=== PATIENT | female | born 1990 | race Caucasian/White ===

== ENCOUNTER → 2016-10-27 | Outpatient (REF) | payer OTHER | LOC: M SFHCCAPE 13:23 | PROVIDERS: ATTEND Physician Assistant | DX: Z32.00 Encounter for pregnancy test, result unknown (principal) ==

== ENCOUNTER → 2016-11-03 | Outpatient (REF) | payer OTHER | LOC: M LAB REF 16:23 | PROVIDERS: ATTEND Obstetrics & Gynecology | DX: O36.80X0 Pregnancy with inconclusive fetal viability, not applicable or unspecified (principal) ==

== ENCOUNTER 2016-11-24 15:21 | Emergency (ER) | payer OTHER ==
[2016-11-24 15:43] LABS: BASO % 0.2 % (0.0-1.0); EOS # 0.2 K/mm3 (0.0-0.50); EOS % 2.3 % (0.0-3.0); LARGE UNSTAINED CELL # 0.1 K/mm3 (0.0-0.4); LARGE UNSTAINED CELL % 1.7 % (0.0-4.0); LYMPH # 2.1 K/mm3 (1.5-6.5); LYMPH % 28.2 % (24.0-44.0); MEAN CORPUSCULAR HEMOGLOBIN 29.6 pg (27.0-33.0); MEAN CORPUSCULAR HGB CONC 31.7 g/dl (32.0-36.5); MEAN CORPUSCULAR VOLUME 93.2 fl (80.0-96.0); MONO # 0.3 K/mm3 (0.0-0.8); MONO % 4.5 % (0.0-5.0); NEUTROPHILS # 4.4 K/mm3 (1.8-7.7); NEUTROPHILS % 63.1 % (36.0-66.0); PLATELET COUNT, AUTOMATED 297 k/mm3 (150-450); RED CELL DISTRIBUTION WIDTH 13.2 % (11.5-14.5)
[2016-11-24 16:26] LABS: ANION GAP 8 MEQ/L (8-16); BLOOD UREA NITROGEN 11 MG/DL (7-18); CALCIUM LEVEL 7.7 MG/DL (8.5-10.1); CARBON DIOXIDE LEVEL 26 MEQ/L (21-32); CHLORIDE LEVEL 109 MEQ/L (98-107); CREATININE FOR GFR 0.69 MG/DL (0.55-1.02); GLOMERULAR FILTRATION RATE > 60.0 (>60); GLUCOSE, FASTING 94 MG/DL (70-105); HCG, SERUM QUANTITATIVE 2581 MIU/ML; SODIUM LEVEL 143 MEQ/L (136-145)
--- NOTE | 2016-11-24 17:46 | REP ---
Clinical: Pelvic pain status post medical . Technique: Transabdominal and transvaginal ultrasound examination with color Doppler evaluation of the ovaries. Findings: Heterogeneous anteverted uterus measures 9.5 x 4.1 x 5.6 cm. Endometrial complex is distended by complex hemorrhagic debris/clot measuring 5.9 x 1.7 x 2.6 cm. No intrauterine is identified and retained products of conception cannot be excluded. Incidental note is made of an anterior intramural fibroid measuring 2.1 cm maximal diameter. The bilateral ovaries are normal in appearance and vascularity without torsion. Right ovary measures 3.8 x 2.5 x 2.1 cm; RI equal 0.49. Left ovary measures 2.1 x 2.5 x 1.5 cm; RI equal 0.50. No pelvic free fluid or adnexal mass lesion. Impression: Clot/hemorrhagic debris in the endocervical canal. No intrauterine identified. Retained products of conception cannot be excluded. Signed by Pillo Díaz MD 11/24/2016 05:38 P
--- NOTE | 2016-11-24 19:11 | EDDOCDS ---
Nurse's Notes [facility] Name: Sindhu Layton Age: 26 yrs Sex: Female : 1990 Arrival Date: 11/24/2016 Time: 15:21 Bed 3 Private MD: Kathryn Dukes M. Diagnosis: Retained portions of placenta and membranes, without hemorrhage-removed with ring forceps, without complication Presentation: 11/24 15:27 Presenting complaint: EMS states: Patient had 11/11 and had been having some ja5 vaginal bleeding [facility] arrival patient had AMS but conscious. BP 80/40 per EMS at 1505. After 250L bolus her SBP went up to 90. Adult Sepsis Screening: The patient does not have new or worsening altered mentation. Patient's respiratory rate is less than 22. Systolic blood pressure is greater than 100. Patient has a qSOFA score of 0- Negative Sepsis Screen. Suicide/Homicide risk assessment- the patient denies having any suicidal and/or homicidal ideations and does not present with any other emotional, behavioral or mental health complaints. Status: Patient is not a service counselor or dependent. Transition of care: [facility] 15:27 Acuity: SINAN Level 2 ja5 15:27 Method Of Arrival: Ambulance ja5 15:52 Care prior to arrival: See EMS report. IV initiated. 1 liter normal saline infused. jc4 Triage Assessment: 15:34 General: Appears in no apparent distress, Behavior is cooperative, drowsy. Pain: Denies ja5 pain. Pt Declines HIV testing. Neurological: Level of Consciousness is awake, alert, Oriented to person, place, time. Cardiovascular: Capillary refill is > 3 seconds Heart tones S1 S2 present Rhythm is sinus rhythm No ectopy. Respiratory: Airway is patent Respiratory effort is even, unlabored, Breath sounds are clear bilaterally. Derm: Skin is pale. 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 Paxil 10 mg Oral tab 1 tab once daily (Last dose: 11/23/2016 09:00) - PMHx: Depression; Anxiety; - PSHx: ; - The history from nurses notes was reviewed: and I agree with what is documented. - Social history: Smoking status: Patient states former smoker of tobacco. No barriers to communication noted, The patient speaks fluent Belarusian. - Family history: Not pertinent. - : The pt / caregiver states he / she is not on anticoagulants. Home medication list is obtained from the patient. - Hospitalizations: : No recent hospitalization is reported. - Exposure Risk Screening:: None identified. - Immunization history:: All immunizations up-to-date. - Social history:: the patient is a non-smoker, the patient drinks alcohol. Screenin:39 Screening information is obtained from the patient. Fall risk: No risks identified. ja5 Assistance ADL's: requires no assistance with activities of daily living. Abuse/DV Screen: The patient / caregiver reports he/she is: not in a situation that causes fear, pain or injury. Nutritional screening: On no prescribed diet. Advance Directives: Currently, there is no health care proxy. There is no active DNR order. There is no living will. There is no Power of Job Interviewer. home support is adequate. Assessment: 16:15 General: Pt resting on stretcher. No distress noted at this time. Color pink, skin warm jc4 and dry. Respirations easy and full. IVF infusing well, site clear. monitoring manager - sinus rhythm without ectopy. Grandmother at bedside. Pt aware that labs are pending at this time. 16:36 General: Patient laying in stretcher with family at bedside. ST on surveillance system monitor, 99% ja5 O2 sat on RA with even unlabored respirations. Patient denies dizziness at this time.. 17:25 General: Pt returned from Ultrasound. Pt texting on phone. Color pink, skin warm and jc4 dry. Respirations easy and full. monitoring manager - sinus rhythm without ectopy. IVF infusing well. Call ramirez in reach. Pt made aware awaiting Ultrasound results. 18:29 General: Patient laying in stretcher, awake and alert with family at bedside. ja5 Respirations are even and unlabored, sinus rhythm, no ectopy on surveillance system monitor Patient is crying at this time due to the recent events in her life. . 19:05 General: Appears in no apparent distress, Behavior is cooperative. Pain: Denies pain. ja5 Neurological: Level of Consciousness is awake, alert, Oriented to person, place, time. Cardiovascular: Capillary refill Rhythm is sinus rhythm No ectopy. Derm: Skin is pink, warm & dry. Vital Signs: 15:37 BP 115 / 54; Pulse 68; Resp 16 S; Temp 96.7(O); Pulse Ox 100% on R/A; Pain 0/10; ja5 15:37 BP 110 / 56 (auto/); jc4 15:37 Pulse 73 MON; Pulse Ox 97% ; jc4 15:39 Weight 52.16 kg (R); Height 5 ft. 7 in. (170.18 cm); ja5 15:45 BP 108 / 59 (auto/); jc4 15:45 Pulse 78 MON; Pulse Ox 97% ; jc4 16:00 BP 110 / 63 (auto/); jc4 16:00 Pulse 80 MON; Pulse Ox 99% ; jc4 16:14 Pulse 77 MON; Pulse Ox 97% ; jc4 16:15 BP 117 / 69 (auto/); jc4 16:30 BP 115 / 68 (auto/); jc4 16:30 Pulse 100 MON; Pulse Ox 98% ; jc4 16:45 BP 92 / 55 (auto/); jc4 16:45 Pulse 88 MON; Pulse Ox 98% ; jc4 16:59 Pulse 83 MON; Pulse Ox 99% ; jc4 17:00 BP 120 / 56 (auto/); jc4 18:36 BP 101 / 65 Supine; Pulse 94; ja5 18:36 BP 117 / 80 Sitting; Pulse 89; ja5 18:36 BP 116 / 78 Standing; Pulse 88; ja5 19:05 BP 103 / 72; Pulse 90; Resp 20; Temp 98.0; Pulse Ox 98% ; Pain 0/10; ja5 15:39 Body Mass Index 18.01 (52.16 kg, 170.18 cm) 5 Vitals: 15:37 Log In Time: November 24, 2016 at 15:25. [facility] ED Course: 15:23 Patient visited by Veronique Washington, Regional Medical Director. lbd 15:23 Kathryn Dukes is Private Physician. lbd 15:23 Tasneem Arora, RN is Primary Nurse. lbd 15:23 Thuy Blancas,RN is Primary Nurse. lbd 15:23 Patient moved to Waiting lbd 15:23 Patient moved to 3 lbd 15:29 Mario Ramachandran MD is Attending Physician. pc 15:31 Triage Initiated ja5 15:34 Hcg, Serum Quantitative Sent. jc4 15:34 Type & Screen Sent. jc4 15:34 MED Profile Sent. jc4 15:34 CBC with Diff Sent. jc4 15:34 Maintain field IV. Dressing intact. Site clean & dry. Gauge & site: 18 G right jc4 antecubital. 15:52 Patient visited by Mario Ramachandran MD. pc 16:17 Patient visited by Tasneem Arora RN. jc4 16:17 The patient / caregiver is instructed regarding the plan of care and ED course. jc4 16:59 Patient moved to Ultrasound br3 17:23 Patient visited by Tasneem Arora, LILIBETH. jc4 17:23 Patient moved to 3 jc4 17:27 Patient visited by Tasneem Arora RN. jc4 17:40 Patient name changed from Sindhu\S\\S\Calin\S\ to Sindhu\S\ \S\Calin. EDMS 17:40 [facility] Payment Agreement was scanned into [employer] and attached to record. ks16 18:00 Assist provider with pelvic exam: Set up pelvic tray. POC sent to pathology, Performed kcs by Mario Ramachandran MD Patient tolerated well. 18:29 Patient visited by Thuy Blancas RN. ja5 18:30 Ultrasound 1st Trimester Returned. EDMS 18:32 Pathology Request For Service Sent. pc 18:44 Zane Uribe MD is Referral Physician. pc 19:02 Primary Nurse role handed off by Tasneem Arora RN [facility] 19:02 Primary Nurse role handed off by Thuy Blancas,LILIBETH [facility] 19:04 Ameena Bird,LILIBETH is Primary Nurse. mv5 19:07 Discontinued lock intact, bleeding controlled, pressure dressing applied, No ja5 redness/swelling at site. Administered Medications: 15:53 Drug: NS 0.9% 1000 ml [sodium chloride 0.9 % intravenous solution] Route: IV; Rate: 100 jc4 mL/hr; Site: right antecubital; 19:09 Follow up: IV Status: Infusion discontinued; IV Intake: 300ml ja5 Intake: 19:09 IV: 300.00ml; Total: 300.00ml. ja5 Order Results: Lab Order: CBC with Diff; SPEC'M 11/24/16 15:32 Test: WHITE BLOOD COUNT; Value: 7.0; Range: 4.0-10.0; Units: K/mm3; Status: F Test: RED BLOOD COUNT; Value: 3.16; Range: 4.00-5.40; Abnormal: Below low normal; Units: M/mm3; Status: F Test: HEMOGLOBIN; Value: 9.3; Range: 12.0-16.0; Abnormal: Below low normal; Units: g/dl; Status: F Test: HEMATOCRIT; Value: 29.4; Range: 36.0-47.0; Abnormal: Below low normal; Units: %; Status: F Test: MEAN CORPUSCULAR VOLUME; Value: 93.2; Range: 80.0-96.0; Units: fl; Status: F Test: MEAN CORPUSCULAR HEMOGLOBIN; Value: 29.6; Range: 27.0-33.0; Units: pg; Status: F Test: MEAN CORPUSCULAR HGB CONC; Value: 31.7; Range: 32.0-36.5; Abnormal: Below low normal; Units: g/dl; Status: F Test: RED CELL DISTRIBUTION WIDTH; Value: 13.2; Range: 11.5-14.5; Units: %; Status: F Test: PLATELET COUNT, AUTOMATED; Value: 297; Range: 150-450; Units: k/mm3; Status: F Test: NEUTROPHILS %; Value: 63.1; Range: 36.0-66.0; Units: %; Status: F Test: LYMPH %; Value: 28.2; Range: 24.0-44.0; Units: %; Status: F Test: MONO %; Value: 4.5; Range: 0.0-5.0; Units: %; Status: F Test: EOS %; Value: 2.3; Range: 0.0-3.0; Units: %; Status: F Test: BASO %; Value: 0.2; Range: 0.0-1.0; Units: %; Status: F Test: LARGE UNSTAINED CELL %; Value: 1.7; Range: 0.0-4.0; Units: %; Status: F Test: NEUTROPHILS #; Value: 4.4; Range: 1.8-7.7; Units: K/mm3; Status: F Test: LYMPH #; Value: 2.1; Range: 1.5-6.5; Units: K/mm3; Status: F Test: MONO #; Value: 0.3; Range: 0.0-0.8; Units: K/mm3; Status: F Test: EOS #; Value: 0.2; Range: 0.0-0.50; Units: K/mm3; Status: F Test: BASO #; Value: 0.0; Range: 0.0-0.2; Units: K/mm3; Status: F Test: LARGE UNSTAINED CELL #; Value: 0.1; Range: 0.0-0.4; Units: K/mm3; Status: F Lab Order: MED Profile; SPEC'M 11/24/16 15:32 Test: GLUCOSE, FASTING; Value: 94; Range: 70-105; Units: MG/DL; Status: F Test: BLOOD UREA NITROGEN; Value: 11; Range: 7-18; Units: MG/DL; Status: F Test: CREATININE FOR GFR; Value: 0.69; Range: 0.55-1.02; Units: MG/DL; Status: F Test: GLOMERULAR FILTRATION RATE; Value: > 60.0; Range: >60; Status: F Test: SODIUM LEVEL; Value: 143; Range: 136-145; Units: MEQ/L; Status: F Test: POTASSIUM SERUM; Value: 4.0; Range: 3.5-5.1; Units: MEQ/L; Status: F Test: CHLORIDE LEVEL; Value: 109; Range: 98-107; Abnormal: Above high normal; Units: MEQ/L; Status: F Test: CARBON DIOXIDE LEVEL; Value: 26; Range: 21-32; Units: MEQ/L; Status: F Test: ANION GAP; Value: 8; Range: 8-16; Units: MEQ/L; Status: F Test: CALCIUM LEVEL; Value: 7.7; Range: 8.5-10.1; Abnormal: Below low normal; Units: MG/DL; Status: F Test Note: ; Units are mL/min/1.73 m2 Chronic Kidney Disease Staging per NKF: Stage I & II GFR >=60 Normal to Mildly Decreased Stage III GFR 30-59 Moderately Decreased Stage IV GFR 15-29 Severely Decreased Stage V GFR <15 Very Little GFR Left ESRD GFR <15 on EMERGENCY MEDICINE Lab Order: Type & Screen; SPEC'M 11/24/16 15:32 Test: BLOOD TYPE; Value: B POS; Status: F Test: AB SCREEN (INDIRECT JORGE ALBERTO)VIS; Value: NEGATIVE; Status: F Lab Order: Hcg, Serum Quantitative; SPEC'M 11/24/16 15:32 Test: HCG, SERUM QUANTITATIVE; Value: 2581; Units: MIU/ML; Status: F Test Note: ; GESTATIONAL AGE APPROXIMATE HCG RANGE (MIU/ML) 0.2-1 WEEK 5-50 1-2 WEEKS 50-500 2-3 WEEKS 100-5,000 3-4 WEEKS 500-10,000 4-5 WEEKS 1,000-50,000 5-6 WEEKS 10,000-100,000 6-8 WEEKS 15,000-200,000 2-3 MONTHS 10,000-100,000 NON FEMALES LESS THAN 3.0 Patient samples may contain human heterophilic antibodies that could react with immunoassays to give falsely elevated or depressed results. This assay has been designed to minimize interference from heterophilic antibodies. Elevated hCG levels have also been associated with trophoblastic disease and nontrophoblastic neoplasms. The possibility of having these diseases should be considered before a diagnosis of is made. This test is not intended for use as a surrogate marker for aiding in the diagnosis or monitoring the treatment of cancer patients. Siemens Creole methodology. Radiology Order: Ultrasound 1st Trimester Test: Ultrasound 1st Trimester REASON FOR EXAMINATION: s/p chemical AB; Clinical: Pelvic pain status post medical .; ; Technique: Transabdominal and transvaginal ultrasound examination with color; Doppler evaluation of the ovaries.; ; Findings:; Heterogeneous anteverted uterus measures 9.5 x 4.1 x 5.6 cm. Endometrial complex; is distended by complex hemorrhagic debris/clot measuring 5.9 x 1.7 x 2.6 cm. No; intrauterine is identified and retained products of conception cannot; be excluded. Incidental note is made of an anterior intramural fibroid measuring; 2.1 cm maximal diameter. The bilateral ovaries are normal in appearance and; vascularity without torsion. Right ovary measures 3.8 x 2.5 x 2.1 cm; RI equal; 0.49. Left ovary measures 2.1 x 2.5 x 1.5 cm; RI equal 0.50. No pelvic free; fluid or adnexal mass lesion.; ; Impression:; Clot/hemorrhagic debris in the endocervical canal.; No intrauterine identified.; Retained products of conception cannot be excluded.; ; ; Signed by; Pillo Díaz MD 11/24/2016 05:38 P; Outcome: 18:45 Discharge ordered by Provider. 19:06 Discharge Assessment: Patient awake and alert. awake, Oriented to person, place and 5 time. patient administered narcotics - no. The following High Risk Discharge criteria are identified: None. Condition: stable. Discharge instructions given to patient, Instructed on discharge instructions, follow up and referral plans. medication usage, Patient was encouraged to no drive home tonight. Property :Personal belongings accompany Pt. 19:08 Ultrasound Study completed. ja5 19:09 Discharged to home ambulatory, with family. 5 19:10 Patient left the ED. [facility] Signatures: Dispatcher [employer] EDMS Mario Ramachandran MD MD pc Sleeman, Kacey, RN RN kcs Veronique Washington, Regional Medical Director Unit lbd Lynette Aleman br3 Tasneem Arora RN RN vanessa4 Kavitha Simeon, Reg Reg ks16 Thuy Blancas,RN RN daily5 Ameena Bird,RN RN mv5 Corrections: (The following items were deleted from the chart) 19:08 19:06 No special radiology studies were completed [place] [id number] MTDD
--- NOTE | 2016-11-24 19:11 | EDDOCDS ---
Physician Documentation [facility] Name: Sindhu Layton Age: 26 yrs Sex: Female : 1990 Arrival Date: 11/24/2016 Time: 15:21 Bed 3 Private MD: Kathryn Dukes M. Disposition: 11/24 18:37 Critical Care: Critical care not applicable. pc Disposition: 11/24/16 18:45 Discharged to Home/Self Care. Impression: Retained portions of placenta and membranes, without hemorrhage - removed with ring forceps, without complication. - Condition is Stable. - Discharge Instructions: Prostaglandin-Induced , Care After. - Prescriptions for Wylie 5- 325 mg Oral Tablet - take 1 tablet by ORAL route every 6 hours As needed MDD: 4 tabs; 20 tablet. methylergonovine 0.2 mg Oral Tablet - take 1 tablet by ORAL route 4 times per day; 4 tablet. - Medication Reconciliation, Local Pharmacy Hours form. - Follow up: Zane Uribe MD; When: Call to arrange an appointment; Reason: Continuance of care. - Problem is new. - Symptoms have improved. HPI: 16:59 This 26 yrs old Female presents to ER via Ambulance with complaints of Blood pc Pressure Problem. 16:59 The history is obtained from the patient. She had a chemical 2 weeks ago , at pc 7w3d by US, and has been bleeding heavily ever since. She has been feeling dizzy when she stands. [facility] to [facility], who performed the AB, and was attempting to do a pelvic exam when she felt weak and her BP was only 60 mmHg. She was sent by EMS, having received 600mL of NS BAR USEFUL OR BUSSER and her SBP was 105. She says her bleeding has slowed down and is no longer having abdominal cramps. At their worst, the symptoms were severe. In the emergency department, the symptoms are mild. The patient has been recently seen by Dr. Mcginnis, 3 week(s) ago, when she was unsure if she was going to terminate the or not.. Historical: - Allergies: no known allergies; - Home Meds: 1. Paxil 10 mg Oral tab 1 tab once daily (Last dose: 11/23/2016 09:00) - PMHx: Depression; Anxiety; - PSHx: ; - The history from nurses notes was reviewed: and I agree with what is documented. - Social history: Smoking status: Patient states former smoker of tobacco. No barriers to communication noted, The patient speaks fluent Azerbaijani. - Family history: Not pertinent. - : The pt / caregiver states he / she is not on anticoagulants. Home medication list is obtained from the patient. - Hospitalizations: : No recent hospitalization is reported. - Exposure Risk Screening:: None identified. - Immunization history:: All immunizations up-to-date. - Social history:: the patient is a non-smoker, the patient drinks alcohol. 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 pc Exam: 16:59 General Appearance: no acute distress, alert. pc 16:59 EENT: ears, nose and throat normal, pharynx normal, mucous membranes moist pale conjunctiva. 16:59 Neck: The exam reveals no acute abnormalities. ROM is normal and painless. No nuchal rigidity is noted.. 16:59 Respiratory: no respiratory distress, normal breath sounds, chest non-tender. 16:59 CVS: regular pulse rate, regular rhythm, normal S1 and S2, no murmurs, strong peripheral pulses. 16:59 Abdomen: soft, non-tender, no organomegaly, normal bowel sounds. 16:59 Back: normal inspection. 16:59 Skin: skin color is normal, warm, dry. 16:59 Extremities: The extremities have a grossly normal appearance, are non-tender, without acute ROM abnormalities. 16:59 Neuro: oriented x 3, cranial nerves normal as tested, no motor deficits, no sensory deficits. 16:59 Psych: normal mood. 18:37 : Pelvic Exam: external exam: is normal, speculum exam reveals scant bleeding, os pc that is open, tissue in cervix is seen, female parking ramp attendant present for the exam. Vital Signs: 15:37 BP 115 / 54; Pulse 68; Resp 16 S; Temp 96.7(O); Pulse Ox 100% on R/A; Pain 0/10; ja5 15:37 BP 110 / 56 (auto/); jc4 15:37 Pulse 73 MON; Pulse Ox 97% ; jc4 15:39 Weight 52.16 kg / 114.99 lbs (R); Height 5 ft. 7 in. (170.18 cm); ja5 15:45 BP 108 / 59 (auto/); jc4 15:45 Pulse 78 MON; Pulse Ox 97% ; jc4 16:00 BP 110 / 63 (auto/); jc4 16:00 Pulse 80 MON; Pulse Ox 99% ; jc4 16:14 Pulse 77 MON; Pulse Ox 97% ; jc4 16:15 BP 117 / 69 (auto/); jc4 16:30 BP 115 / 68 (auto/); jc4 16:30 Pulse 100 MON; Pulse Ox 98% ; jc4 16:45 BP 92 / 55 (auto/); jc4 16:45 Pulse 88 MON; Pulse Ox 98% ; jc4 16:59 Pulse 83 MON; Pulse Ox 99% ; jc4 17:00 BP 120 / 56 (auto/); jc4 18:36 BP 101 / 65 Supine; Pulse 94; ja5 18:36 BP 117 / 80 Sitting; Pulse 89; ja5 18:36 BP 116 / 78 Standing; Pulse 88; ja5 19:05 BP 103 / 72; Pulse 90; Resp 20; Temp 98.0; Pulse Ox 98% ; Pain 0/10; ja5 15:39 Body Mass Index 18.01 (52.16 kg, 170.18 cm) ja5 Procedures: 18:41 Performed Removal of retained PoC from endocervix. With ring forceps and gentle pc retraction, the gestational sac was removed without complication, and the products sent for pathology . MDM: 15:30 Director Credit Risk/Pulse Ox/q 15 min VS ordered. pc 15:30 IV Saline Lock ordered. pc 15:30 NS 0.9% 1000 ml IV at 100 mL/hr continuous ordered. pc 15:31 CBC with Diff Ordered. EDMS 15:31 MED Profile Ordered. EDMS 15:31 Hcg, Serum Quantitative Ordered. EDMS 15:32 NOTHING BY MOUTH+DIET ordered. EDMS 15:32 Type & Screen Ordered. EDMS 16:36 Financial registration complete. ks16 16:46 CBC with Diff Reviewed. pc 16:46 MED Profile Reviewed. pc 16:46 Type & Screen Reviewed. pc 16:46 Hcg, Serum Quantitative Reviewed. pc 16:48 Ultrasound 1st Trimester Ordered. EDMS 16:59 Differential Diagnosis: s/p therapeutic AB with continued bleeding r/o incomplete pc AB/retained products. Plan: labs, IVF, US. 17:32 TRANSVAGINAL US Ordered. EDMS 17:33 DUPLEX SCAN LIMITED (DOPPLER) Ordered. EDRI 17:40 [facility] Payment Agreement was scanned into [employer] and attached to record. ks16 18:12 Pathology Request For Service Ordered. EDMS 18:32 Orthostatic VS ordered. pc 18:37 Data reviewed: old medical records, vital signs, nurses notes, lab test results, all pc radiology studies and available results. Test interpretation: LAB - all labs as ordered have been reviewed, interpreted and considered in the overall management of the clinical presentation; Ultrasound - OB 1st trimester anterior fibroid, 6x2x2 clot/debris in endocervical canal, else nad. The patient has been re-examined and re-evaluated. The patient's symptoms have resolved after treatment. Physician consultation: Dr. Zane Uribe MD regarding patient's condition, and advises the medications/treatment as provided. and agrees with the treatment provided and advises the discharge plans as outlined. Disposition: The historical points, examination findings, and any diagnostic results supporting the provided diagnosis, were discussed with the patient or legal guardian. The need for outpatient follow up with the provider listed on their discharge instructions was discussed. They were encouraged to return to [facility], or the nearest ED, if symptoms worsen/persist, or for any other questions/concerns. Administered Medications: 15:53 Drug: NS 0.9% 1000 ml [sodium chloride 0.9 % intravenous solution] Route: IV; Rate: 100 jc4 mL/hr; Site: right antecubital; 19:09 Follow up: IV Status: Infusion discontinued; IV Intake: 300ml ja5 Signatures: Dispatcher [facility] Mario Posadas MD MD pc Castle, Jennifer, RN RN jc4 Kavitha Simeon, Reg Reg ks16 Thuy Blancas RN RN ja5 The chart was reviewed and I authenticate all verbal orders and agree with the evaluation and treatment provided.Corrections: (The following items were deleted from the chart) 18:41 18:37 : Pelvic Exam: external exam: is normal, speculum exam reveals scant bleeding, pc os that is open, pc Attachments: 17:40 [facility] Payment Agreement [email or web address] MTDD
--- NOTE | 2016-11-26 20:11 | EDDOCDS ---
Physician Documentation [facility] Name: Sindhu Layton Age: 26 yrs Sex: Female : 1990 Arrival Date: 11/24/2016 Time: 15:21 Bed 3 Private MD: Kathryn Dukes M. Disposition: 11/24 18:37 Critical Care: Critical care not applicable. pc Disposition: 11/24/16 18:45 Discharged to Home/Self Care. Impression: Retained portions of placenta and membranes, without hemorrhage - removed with ring forceps, without complication. - Condition is Stable. - Discharge Instructions: Prostaglandin-Induced , Care After. - Prescriptions for [place] 5- 325 mg Oral Tablet - take 1 tablet by ORAL route every 6 hours As needed MDD: 4 tabs; 20 tablet. methylergonovine 0.2 mg Oral Tablet - take 1 tablet by ORAL route 4 times per day; 4 tablet. - Medication Reconciliation, Local Pharmacy Hours form. - Follow up: Zane Uribe MD; When: Call to arrange an appointment; Reason: Continuance of care. - Problem is new. - Symptoms have improved. HPI: 16:59 This 26 yrs old Female presents to ER via Ambulance with complaints of Blood pc Pressure Problem. 16:59 The history is obtained from the patient. She had a chemical 2 weeks ago , at pc 7w3d by US, and has been bleeding heavily ever since. She has been feeling dizzy when she stands. [facility] to [facility], who performed the AB, and was attempting to do a pelvic exam when she felt weak and her BP was only 60 mmHg. She was sent by EMS, having received 600mL of NS REAL ESTATE SALES ASSOCIATE and her SBP was 105. She says her bleeding has slowed down and is no longer having abdominal cramps. At their worst, the symptoms were severe. In the emergency department, the symptoms are mild. The patient has been recently seen by Dr. Mcginnis, 3 week(s) ago, when she was unsure if she was going to terminate the or not.. Historical: - Allergies: no known allergies; - Home Meds: 1. Paxil 10 mg Oral tab 1 tab once daily (Last dose: 11/23/2016 09:00) - PMHx: Depression; Anxiety; - PSHx: ; - The history from nurses notes was reviewed: and I agree with what is documented. - Social history: Smoking status: Patient states former smoker of tobacco. No barriers to communication noted, The patient speaks fluent Burundian. - Family history: Not pertinent. - : The pt / caregiver states he / she is not on anticoagulants. Home medication list is obtained from the patient. - Hospitalizations: : No recent hospitalization is reported. - Exposure Risk Screening:: None identified. - Immunization history:: All immunizations up-to-date. - Social history:: the patient is a non-smoker, the patient drinks alcohol. 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 pc Exam: 16:59 General Appearance: no acute distress, alert. pc 16:59 EENT: ears, nose and throat normal, pharynx normal, mucous membranes moist pale conjunctiva. 16:59 Neck: The exam reveals no acute abnormalities. ROM is normal and painless. No nuchal rigidity is noted.. 16:59 Respiratory: no respiratory distress, normal breath sounds, chest non-tender. 16:59 CVS: regular pulse rate, regular rhythm, normal S1 and S2, no murmurs, strong peripheral pulses. 16:59 Abdomen: soft, non-tender, no organomegaly, normal bowel sounds. 16:59 Back: normal inspection. 16:59 Skin: skin color is normal, warm, dry. 16:59 Extremities: The extremities have a grossly normal appearance, are non-tender, without acute ROM abnormalities. 16:59 Neuro: oriented x 3, cranial nerves normal as tested, no motor deficits, no sensory deficits. 16:59 Psych: normal mood. 18:37 : Pelvic Exam: external exam: is normal, speculum exam reveals scant bleeding, os pc that is open, tissue in cervix is seen, female certified prosthetist/orthotist present for the exam. Vital Signs: 15:26 BP 115 / 54 (auto/); ja5 15:29 Pulse 69 MON; Pulse Ox 98% ; ja5 15:37 BP 115 / 54; Pulse 68; Resp 16 S; Temp 96.7(O); Pulse Ox 100% on R/A; Pain 0/10; ja5 15:37 BP 110 / 56 (auto/); jc4 15:37 Pulse 73 MON; Pulse Ox 97% ; jc4 15:39 Weight 52.16 kg / 114.99 lbs (R); Height 5 ft. 7 in. (170.18 cm); ja5 15:45 BP 108 / 59 (auto/); jc4 15:45 Pulse 78 MON; Pulse Ox 97% ; jc4 16:00 BP 110 / 63 (auto/); jc4 16:00 Pulse 80 MON; Pulse Ox 99% ; jc4 16:14 Pulse 77 MON; Pulse Ox 97% ; jc4 16:15 BP 117 / 69 (auto/); jc4 16:30 BP 115 / 68 (auto/); jc4 16:30 Pulse 100 MON; Pulse Ox 98% ; jc4 16:45 BP 92 / 55 (auto/); jc4 16:45 Pulse 88 MON; Pulse Ox 98% ; jc4 16:59 Pulse 83 MON; Pulse Ox 99% ; jc4 17:00 BP 120 / 56 (auto/); jc4 17:03 Pulse 108 MON; ja5 17:25 BP 113 / 59 (auto/); ja5 17:29 Pulse 91 MON; Pulse Ox 99% ; ja5 17:30 BP 109 / 59 (auto/); ja5 17:34 Pulse 84 MON; Pulse Ox 99% ; ja5 17:35 BP 108 / 58 (auto/); ja5 17:45 Pulse 91 MON; Pulse Ox 98% ; ja5 18:09 BP 112 / 62 (auto/); ja5 18:32 Pulse 98 MON; ja5 18:33 BP 101 / 65 (auto/); ja5 18:36 BP 101 / 65 Supine; Pulse 94; ja5 18:36 BP 117 / 80 Sitting; Pulse 89; ja5 18:36 BP 116 / 78 Standing; Pulse 88; ja5 19:05 BP 103 / 72; Pulse 90; Resp 20; Temp 98.0; Pulse Ox 98% ; Pain 0/10; ja5 15:39 Body Mass Index 18.01 (52.16 kg, 170.18 cm) 5 Procedures: 18:41 Performed Removal of retained PoC from endocervix. With ring forceps and gentle pc retraction, the gestational sac was removed without complication, and the products sent for pathology . MDM: 15:30 Philosophy Lecturer/Pulse Ox/q 15 min VS ordered. pc 15:30 IV Saline Lock ordered. pc 15:30 NS 0.9% 1000 ml IV at 100 mL/hr continuous ordered. pc 15:31 CBC with Diff Ordered. EDMS 15:31 MED Profile Ordered. EDMS 15:31 Hcg, Serum Quantitative Ordered. EDMS 15:32 NOTHING BY MOUTH+DIET ordered. EDMS 15:32 Type & Screen Ordered. EDMS 16:36 Financial registration complete. ks16 16:46 CBC with Diff Reviewed. pc 16:46 MED Profile Reviewed. pc 16:46 Type & Screen Reviewed. pc 16:46 Hcg, Serum Quantitative Reviewed. pc 16:48 Ultrasound 1st Trimester Ordered. EDMS 16:59 Differential Diagnosis: s/p therapeutic AB with continued bleeding r/o incomplete pc AB/retained products. Plan: labs, IVF, US. 17:32 TRANSVAGINAL US Ordered. EDMS 17:33 DUPLEX SCAN LIMITED (DOPPLER) Ordered. EDMS 17:40 [facility] Payment Agreement was scanned into [employer] and attached to record. ks16 18:12 Pathology Request For Service Ordered. EDMS 18:32 Orthostatic VS ordered. pc 18:37 Data reviewed: old medical records, vital signs, nurses notes, lab test results, all pc radiology studies and available results. Test interpretation: LAB - all labs as ordered have been reviewed, interpreted and considered in the overall management of the clinical presentation; Ultrasound - OB 1st trimester anterior fibroid, 6x2x2 clot/debris in endocervical canal, else nad. The patient has been re-examined and re-evaluated. The patient's symptoms have resolved after treatment. Physician consultation: Dr. Zane Uribe MD regarding patient's condition, and advises the medications/treatment as provided. and agrees with the treatment provided and advises the discharge plans as outlined. Disposition: The historical points, examination findings, and any diagnostic results supporting the provided diagnosis, were discussed with the patient or legal guardian. The need for outpatient follow up with the provider listed on their discharge instructions was discussed. They were encouraged to return to [facility], or the nearest ED, if symptoms worsen/persist, or for any other questions/concerns. Administered Medications: 15:53 Drug: NS 0.9% 1000 ml [sodium chloride 0.9 % intravenous solution] Route: IV; Rate: 100 jc4 mL/hr; Site: right antecubital; 19:09 Follow up: IV Status: Infusion discontinued; IV Intake: 300ml ja5 Signatures: Dispatcher [employer] EDMario Arce, MD MD pc Wildorado, Tasneem, RN RN jc4 Kavitha Simeon, Reg Reg ks16 Thuy BlancasRN RN ja5 The chart was reviewed and I authenticate all verbal orders and agree with the evaluation and treatment provided.Corrections: (The following items were deleted from the chart) 18:41 18:37 : Pelvic Exam: external exam: is normal, speculum exam reveals scant bleeding, pc os that is open, pc Attachments: 17:40 [facility] [place] Payment Agreement ks16 Chart Complete MTDD
--- NOTE | 2016-11-26 20:11 | EDDOCDS ---
Nurse's Notes [facility] Name: Sindhu Layton Age: 26 yrs Sex: Female : 1990 Arrival Date: 11/24/2016 Time: 15:21 Bed 3 Private MD: Kathryn Dukes M. Diagnosis: Retained portions of placenta and membranes, without hemorrhage-removed with ring forceps, without complication Presentation: 11/24 15:27 Presenting complaint: EMS states: Patient had 11/11 and had been having some ja5 vaginal bleeding [facility]. Upon EMS arrival patient had AMS but conscious. BP 80/40 per EMS at 1505. After 250L bolus her SBP went up to 90. Adult Sepsis Screening: The patient does not have new or worsening altered mentation. Patient's respiratory rate is less than 22. Systolic blood pressure is greater than 100. Patient has a qSOFA score of 0- Negative Sepsis Screen. Suicide/Homicide risk assessment- the patient denies having any suicidal and/or homicidal ideations and does not present with any other emotional, behavioral or mental health complaints. Status: Patient is not a cdl service technician or dependent. Transition of care: [facility] 15:27 Acuity: SINAN Level 2 ja5 15:27 Method Of Arrival: Ambulance ja5 15:52 Care prior to arrival: See EMS report. IV initiated. 1 liter normal saline infused. jc4 Triage Assessment: 15:34 General: Appears in no apparent distress, Behavior is cooperative, drowsy. Pain: Denies ja5 pain. Pt Declines HIV testing. Neurological: Level of Consciousness is awake, alert, Oriented to person, place, time. Cardiovascular: Capillary refill is > 3 seconds Heart tones S1 S2 present Rhythm is sinus rhythm No ectopy. Respiratory: Airway is patent Respiratory effort is even, unlabored, Breath sounds are clear bilaterally. Derm: Skin is pale. 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 Paxil 10 mg Oral tab 1 tab once daily (Last dose: 11/23/2016 09:00) - PMHx: Depression; Anxiety; - PSHx: ; - The history from nurses notes was reviewed: and I agree with what is documented. - Social history: Smoking status: Patient states former smoker of tobacco. No barriers to communication noted, The patient speaks fluent Maori. - Family history: Not pertinent. - : The pt / caregiver states he / she is not on anticoagulants. Home medication list is obtained from the patient. - Hospitalizations: : No recent hospitalization is reported. - Exposure Risk Screening:: None identified. - Immunization history:: All immunizations up-to-date. - Social history:: the patient is a non-smoker, the patient drinks alcohol. Screenin:39 Screening information is obtained from the patient. Fall risk: No risks identified. ja5 Assistance ADL's: requires no assistance with activities of daily living. Abuse/DV Screen: The patient / caregiver reports he/she is: not in a situation that causes fear, pain or injury. Nutritional screening: On no prescribed diet. Advance Directives: Currently, there is no health care proxy. There is no active DNR order. There is no living will. There is no Power of Chief Business Officer. home support is adequate. Assessment: 16:15 General: Pt resting on stretcher. No distress noted at this time. Color pink, skin warm jc4 and dry. Respirations easy and full. IVF infusing well, site clear. child monitor - sinus rhythm without ectopy. Grandmother at bedside. Pt aware that labs are pending at this time. 16:36 General: Patient laying in stretcher with family at bedside. ST on hospital monitor, 99% ja5 O2 sat on RA with even unlabored respirations. Patient denies dizziness at this time.. 17:25 General: Pt returned from Ultrasound. Pt texting on phone. Color pink, skin warm and jc4 dry. Respirations easy and full. child monitor - sinus rhythm without ectopy. IVF infusing well. Call ramirez in reach. Pt made aware awaiting Ultrasound results. 18:29 General: Patient laying in stretcher, awake and alert with family at bedside. ja5 Respirations are even and unlabored, sinus rhythm, no ectopy on hospital monitor Patient is crying at this time due to the recent events in her life. . 19:05 General: Appears in no apparent distress, Behavior is cooperative. Pain: Denies pain. ja5 Neurological: Level of Consciousness is awake, alert, Oriented to person, place, time. Cardiovascular: Capillary refill Rhythm is sinus rhythm No ectopy. Derm: Skin is pink, warm & dry. Vital Signs: 15:26 BP 115 / 54 (auto/); ja5 15:29 Pulse 69 MON; Pulse Ox 98% ; ja5 15:37 BP 115 / 54; Pulse 68; Resp 16 S; Temp 96.7(O); Pulse Ox 100% on R/A; Pain 0/10; ja5 15:37 BP 110 / 56 (auto/); jc4 15:37 Pulse 73 MON; Pulse Ox 97% ; jc4 15:39 Weight 52.16 kg (R); Height 5 ft. 7 in. (170.18 cm); ja5 15:45 BP 108 / 59 (auto/); jc4 15:45 Pulse 78 MON; Pulse Ox 97% ; jc4 16:00 BP 110 / 63 (auto/); jc4 16:00 Pulse 80 MON; Pulse Ox 99% ; jc4 16:14 Pulse 77 MON; Pulse Ox 97% ; jc4 16:15 BP 117 / 69 (auto/); jc4 16:30 BP 115 / 68 (auto/); jc4 16:30 Pulse 100 MON; Pulse Ox 98% ; jc4 16:45 BP 92 / 55 (auto/); jc4 16:45 Pulse 88 MON; Pulse Ox 98% ; jc4 16:59 Pulse 83 MON; Pulse Ox 99% ; jc4 17:00 BP 120 / 56 (auto/); jc4 17:03 Pulse 108 MON; ja5 17:25 BP 113 / 59 (auto/); ja5 17:29 Pulse 91 MON; Pulse Ox 99% ; ja5 17:30 BP 109 / 59 (auto/); ja5 17:34 Pulse 84 MON; Pulse Ox 99% ; ja5 17:35 BP 108 / 58 (auto/); ja5 17:45 Pulse 91 MON; Pulse Ox 98% ; ja5 18:09 BP 112 / 62 (auto/); ja5 18:32 Pulse 98 MON; ja5 18:33 BP 101 / 65 (auto/); ja5 18:36 BP 101 / 65 Supine; Pulse 94; ja5 18:36 BP 117 / 80 Sitting; Pulse 89; ja5 18:36 BP 116 / 78 Standing; Pulse 88; ja5 19:05 BP 103 / 72; Pulse 90; Resp 20; Temp 98.0; Pulse Ox 98% ; Pain 0/10; ja5 15:39 Body Mass Index 18.01 (52.16 kg, 170.18 cm) [facility] Vitals: 15:37 Log In Time: November 24, 2016 at 15:25. [facility] ED Course: 15:23 Patient visited by Veronique Washington, Director Client. lbd 15:23 Kathryn Dukes is Private Physician. lbd 15:23 Tasneem Arora RN is Primary Nurse. lbd 15:23 Thuy Blancas,LILIBETH is Primary Nurse. lbd 15:23 Patient moved to Waiting lbd 15:23 Patient moved to 3 lbd 15:29 Mario Ramachandran MD is Attending Physician. pc 15:31 Triage Initiated ja5 15:34 Hcg, Serum Quantitative Sent. jc4 15:34 Type & Screen Sent. jc4 15:34 MED Profile Sent. jc4 15:34 CBC with Diff Sent. jc4 15:34 Maintain field IV. Dressing intact. Site clean & dry. Gauge & site: 18 G right jc4 antecubital. 15:52 Patient visited by Mario Ramachandran MD. pc 16:17 Patient visited by Tasneem Arora RN. jc4 16:17 The patient / caregiver is instructed regarding the plan of care and ED course. jc4 16:59 Patient moved to Ultrasound br3 17:23 Patient visited by Tasneem Arora RN. jc4 17:23 Patient moved to 3 jc4 17:27 Patient visited by Tasneem Arora RN. jc4 17:40 Patient name changed from Sindhu\S\\S\Calin\S\ to Sindhu\S\ \S\Calin. EDMS 17:40 [facility] [place] Payment Agreement was scanned into [employer] and attached to record. ks16 18:00 Assist provider with pelvic exam: Set up pelvic tray. POC sent to pathology, Performed kcs by Mario Ramachandran MD Patient tolerated well. 18:29 Patient visited by Thuy Blancas,LILIBETH. 5 18:30 Ultrasound 1st Trimester Returned. EDMS 18:32 Pathology Request For Service Sent. pc 18:44 Zane Uribe MD is Referral Physician. pc 19:02 Primary Nurse role handed off by Tasneem Arora RN jc4 19:02 Primary Nurse role handed off by Thuy Blancas,RN jc4 19:04 Ameena Bird,RN is Primary Nurse. mv5 19:07 Discontinued lock intact, bleeding controlled, pressure dressing applied, No ja5 redness/swelling at site. Administered Medications: 15:53 Drug: NS 0.9% 1000 ml [sodium chloride 0.9 % intravenous solution] Route: IV; Rate: 100 jc4 mL/hr; Site: right antecubital; 19:09 Follow up: IV Status: Infusion discontinued; IV Intake: 300ml ja5 Intake: 19:09 IV: 300.00ml; Total: 300.00ml. ja5 Order Results: Lab Order: CBC with Diff; SPEC'M 11/24/16 15:32 Test: WHITE BLOOD COUNT; Value: 7.0; Range: 4.0-10.0; Units: K/mm3; Status: F Test: RED BLOOD COUNT; Value: 3.16; Range: 4.00-5.40; Abnormal: Below low normal; Units: M/mm3; Status: F Test: HEMOGLOBIN; Value: 9.3; Range: 12.0-16.0; Abnormal: Below low normal; Units: g/dl; Status: F Test: HEMATOCRIT; Value: 29.4; Range: 36.0-47.0; Abnormal: Below low normal; Units: %; Status: F Test: MEAN CORPUSCULAR VOLUME; Value: 93.2; Range: 80.0-96.0; Units: fl; Status: F Test: MEAN CORPUSCULAR HEMOGLOBIN; Value: 29.6; Range: 27.0-33.0; Units: pg; Status: F Test: MEAN CORPUSCULAR HGB CONC; Value: 31.7; Range: 32.0-36.5; Abnormal: Below low normal; Units: g/dl; Status: F Test: RED CELL DISTRIBUTION WIDTH; Value: 13.2; Range: 11.5-14.5; Units: %; Status: F Test: PLATELET COUNT, AUTOMATED; Value: 297; Range: 150-450; Units: k/mm3; Status: F Test: NEUTROPHILS %; Value: 63.1; Range: 36.0-66.0; Units: %; Status: F Test: LYMPH %; Value: 28.2; Range: 24.0-44.0; Units: %; Status: F Test: MONO %; Value: 4.5; Range: 0.0-5.0; Units: %; Status: F Test: EOS %; Value: 2.3; Range: 0.0-3.0; Units: %; Status: F Test: BASO %; Value: 0.2; Range: 0.0-1.0; Units: %; Status: F Test: LARGE UNSTAINED CELL %; Value: 1.7; Range: 0.0-4.0; Units: %; Status: F Test: NEUTROPHILS #; Value: 4.4; Range: 1.8-7.7; Units: K/mm3; Status: F Test: LYMPH #; Value: 2.1; Range: 1.5-6.5; Units: K/mm3; Status: F Test: MONO #; Value: 0.3; Range: 0.0-0.8; Units: K/mm3; Status: F Test: EOS #; Value: 0.2; Range: 0.0-0.50; Units: K/mm3; Status: F Test: BASO #; Value: 0.0; Range: 0.0-0.2; Units: K/mm3; Status: F Test: LARGE UNSTAINED CELL #; Value: 0.1; Range: 0.0-0.4; Units: K/mm3; Status: F Lab Order: [facility]; [facility]' 11/24/16 15:32 Test: GLUCOSE, FASTING; Value: 94; Range: 70-105; Units: MG/DL; Status: F Test: BLOOD UREA NITROGEN; Value: 11; Range: 7-18; Units: MG/DL; Status: F Test: CREATININE FOR GFR; Value: 0.69; Range: 0.55-1.02; Units: MG/DL; Status: F Test: GLOMERULAR FILTRATION RATE; Value: > 60.0; Range: >60; Status: F Test: SODIUM LEVEL; Value: 143; Range: 136-145; Units: MEQ/L; Status: F Test: POTASSIUM SERUM; Value: 4.0; Range: 3.5-5.1; Units: MEQ/L; Status: F Test: CHLORIDE LEVEL; Value: 109; Range: 98-107; Abnormal: Above high normal; Units: MEQ/L; Status: F Test: CARBON DIOXIDE LEVEL; Value: 26; Range: 21-32; Units: MEQ/L; Status: F Test: ANION GAP; Value: 8; Range: 8-16; Units: MEQ/L; Status: F Test: CALCIUM LEVEL; Value: 7.7; Range: 8.5-10.1; Abnormal: Below low normal; Units: MG/DL; Status: F Test Note: ; Units are mL/min/1.73 m2 Chronic Kidney Disease Staging per NKF: Stage I & II GFR >=60 Normal to Mildly Decreased Stage III GFR 30-59 Moderately Decreased Stage IV GFR 15-29 Severely Decreased Stage V GFR <15 Very Little GFR Left ESRD GFR <15 on SILVER SERVICE WAITER Lab Order: Type & Screen; [facility] Test: BLOOD TYPE; Value: B POS; Status: F Test: AB SCREEN (INDIRECT JORGE ALBERTO)VIS; Value: NEGATIVE; Status: F Lab Order: Hcg, Serum Quantitative; SPEC 11/24/16 15:32 Test: HCG, SERUM QUANTITATIVE; Value: 2581; Units: MIU/ML; Status: F Test Note: ; GESTATIONAL AGE APPROXIMATE HCG RANGE (MIU/ML) 0.2-1 WEEK 5-50 1-2 WEEKS 50-500 2-3 WEEKS 100-5,000 3-4 WEEKS 500-10,000 4-5 WEEKS 1,000-50,000 5-6 WEEKS 10,000-100,000 6-8 WEEKS 15,000-200,000 2-3 MONTHS 10,000-100,000 NON FEMALES LESS THAN 3.0 Patient samples may contain human heterophilic antibodies that could react with immunoassays to give falsely elevated or depressed results. This assay has been designed to minimize interference from heterophilic antibodies. Elevated hCG levels have also been associated with trophoblastic disease and nontrophoblastic neoplasms. The possibility of having these diseases should be considered before a diagnosis of is made. This test is not intended for use as a surrogate marker for aiding in the diagnosis or monitoring the treatment of cancer patients. [employer] methodology. Radiology Order: Ultrasound 1st Trimester Test: Ultrasound 1st Trimester REASON FOR EXAMINATION: s/p chemical AB; Clinical: Pelvic pain status post medical .; ; Technique: Transabdominal and transvaginal ultrasound examination with color; Doppler evaluation of the ovaries.; ; Findings:; Heterogeneous anteverted uterus measures 9.5 x 4.1 x 5.6 cm. Endometrial complex; is distended by complex hemorrhagic debris/clot measuring 5.9 x 1.7 x 2.6 cm. No; intrauterine is identified and retained products of conception cannot; be excluded. Incidental note is made of an anterior intramural fibroid measuring; 2.1 cm maximal diameter. The bilateral ovaries are normal in appearance and; vascularity without torsion. Right ovary measures 3.8 x 2.5 x 2.1 cm; RI equal; 0.49. Left ovary measures 2.1 x 2.5 x 1.5 cm; RI equal 0.50. No pelvic free; fluid or adnexal mass lesion.; ; Impression:; Clot/hemorrhagic debris in the endocervical canal.; No intrauterine identified.; Retained products of conception cannot be excluded.; ; ; Signed by; Pillo Díaz MD 11/24/2016 05:38 P; Outcome: 18:45 Discharge ordered by Provider. pc 19:06 Discharge Assessment: Patient awake and alert. awake, Oriented to person, place and ja5 time. patient administered narcotics - no. The following High Risk Discharge criteria are identified: None. Condition: stable. Discharge instructions given to patient, Instructed on discharge instructions, follow up and referral plans. medication usage, Patient was encouraged to no drive home tonight. Property :Personal belongings accompany Pt. 19:08 Ultrasound Study completed. ja5 19:09 Discharged to home ambulatory, with family. ja5 19:10 Patient left the ED. ja5 Signatures: Dispatcher [employer] EDMS Mario Ramachandran MD MD pc Sleeman, Kacey RN RN Veronique Olmstead, Director Client Unit lbd Lynette Aleman br3 Tasneem Arora RN RN jc4 Kavitha Simeon, Reg Reg ks16 Thuy BlancasRN RN ja5 Ameena Bird,RN RN mv5 Corrections: (The following items were deleted from the chart) 19:08 19:06 No special radiology studies were completed ja5 ja5 Chart Complete MTDD
--- NOTE | 2016-11-26 20:11 | EDDOCDS ---
Physician Documentation [facility] Name: Sindhu Layton Age: 26 yrs Sex: Female : 1990 Arrival Date: 11/24/2016 Time: 15:21 Bed 3 Private MD: Kathryn Dukes M. Disposition: 11/24 18:37 Critical Care: Critical care not applicable. pc Disposition: 11/24/16 18:45 Discharged to Home/Self Care. Impression: Retained portions of placenta and membranes, without hemorrhage - removed with ring forceps, without complication. - Condition is Stable. - Discharge Instructions: Prostaglandin-Induced , Care After. - Prescriptions for Leon 5- 325 mg Oral Tablet - take 1 tablet by ORAL route every 6 hours As needed MDD: 4 tabs; 20 tablet. methylergonovine 0.2 mg Oral Tablet - take 1 tablet by ORAL route 4 times per day; 4 tablet. - Medication Reconciliation, Local Pharmacy Hours form. - Follow up: Zane Uribe MD; When: Call to arrange an appointment; Reason: Continuance of care. - Problem is new. - Symptoms have improved. HPI: 16:59 This 26 yrs old Female presents to ER via Ambulance with complaints of Blood pc Pressure Problem. 16:59 The history is obtained from the patient. She had a chemical 2 weeks ago , at pc 7w3d by US, and has been bleeding heavily ever since. She has been feeling dizzy when she stands. [facility] went to [facility], who performed the AB, and was attempting to do a pelvic exam when she felt weak and her BP was only 60 mmHg. She was sent by EMS, having received 600mL of NS DELINQUENCY PREVENTION OFFICER and her SBP was 105. She says her bleeding has slowed down and is no longer having abdominal cramps. At their worst, the symptoms were severe. In the emergency department, the symptoms are mild. The patient has been recently seen by Dr. Mcginnis, 3 week(s) ago, when she was unsure if she was going to terminate the or not.. Historical: - Allergies: no known allergies; - Home Meds: 1. Paxil 10 mg Oral tab 1 tab once daily (Last dose: 11/23/2016 09:00) - PMHx: Depression; Anxiety; - PSHx: ; - The history from nurses notes was reviewed: and I agree with what is documented. - Social history: Smoking status: Patient states former smoker of tobacco. No barriers to communication noted, The patient speaks fluent Bahamian. - Family history: Not pertinent. - : The pt / caregiver states he / she is not on anticoagulants. Home medication list is obtained from the patient. - Hospitalizations: : No recent hospitalization is reported. - Exposure Risk Screening:: None identified. - Immunization history:: All immunizations up-to-date. - Social history:: the patient is a non-smoker, the patient drinks alcohol. 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 pc Exam: 16:59 General Appearance: no acute distress, alert. pc 16:59 EENT: ears, nose and throat normal, pharynx normal, mucous membranes moist pale conjunctiva. 16:59 Neck: The exam reveals no acute abnormalities. ROM is normal and painless. No nuchal rigidity is noted.. 16:59 Respiratory: no respiratory distress, normal breath sounds, chest non-tender. 16:59 CVS: regular pulse rate, regular rhythm, normal S1 and S2, no murmurs, strong peripheral pulses. 16:59 Abdomen: soft, non-tender, no organomegaly, normal bowel sounds. 16:59 Back: normal inspection. 16:59 Skin: skin color is normal, warm, dry. 16:59 Extremities: The extremities have a grossly normal appearance, are non-tender, without acute ROM abnormalities. 16:59 Neuro: oriented x 3, cranial nerves normal as tested, no motor deficits, no sensory deficits. 16:59 Psych: normal mood. 18:37 : Pelvic Exam: external exam: is normal, speculum exam reveals scant bleeding, os pc that is open, tissue in cervix is seen, female jumpbasting collar baster present for the exam. Vital Signs: 15:26 BP 115 / 54 (auto/); ja5 15:29 Pulse 69 MON; Pulse Ox 98% ; ja5 15:37 BP 115 / 54; Pulse 68; Resp 16 S; Temp 96.7(O); Pulse Ox 100% on R/A; Pain 0/10; ja5 15:37 BP 110 / 56 (auto/); jc4 15:37 Pulse 73 MON; Pulse Ox 97% ; jc4 15:39 Weight 52.16 kg / 114.99 lbs (R); Height 5 ft. 7 in. (170.18 cm); ja5 15:45 BP 108 / 59 (auto/); jc4 15:45 Pulse 78 MON; Pulse Ox 97% ; jc4 16:00 BP 110 / 63 (auto/); jc4 16:00 Pulse 80 MON; Pulse Ox 99% ; jc4 16:14 Pulse 77 MON; Pulse Ox 97% ; jc4 16:15 BP 117 / 69 (auto/); jc4 16:30 BP 115 / 68 (auto/); jc4 16:30 Pulse 100 MON; Pulse Ox 98% ; jc4 16:45 BP 92 / 55 (auto/); jc4 16:45 Pulse 88 MON; Pulse Ox 98% ; jc4 16:59 Pulse 83 MON; Pulse Ox 99% ; jc4 17:00 BP 120 / 56 (auto/); jc4 17:03 Pulse 108 MON; ja5 17:25 BP 113 / 59 (auto/); ja5 17:29 Pulse 91 MON; Pulse Ox 99% ; ja5 17:30 BP 109 / 59 (auto/); ja5 17:34 Pulse 84 MON; Pulse Ox 99% ; ja5 17:35 BP 108 / 58 (auto/); ja5 17:45 Pulse 91 MON; Pulse Ox 98% ; ja5 18:09 BP 112 / 62 (auto/); ja5 18:32 Pulse 98 MON; ja5 18:33 BP 101 / 65 (auto/); ja5 18:36 BP 101 / 65 Supine; Pulse 94; ja5 18:36 BP 117 / 80 Sitting; Pulse 89; ja5 18:36 BP 116 / 78 Standing; Pulse 88; ja5 19:05 BP 103 / 72; Pulse 90; Resp 20; Temp 98.0; Pulse Ox 98% ; Pain 0/10; ja5 15:39 Body Mass Index 18.01 (52.16 kg, 170.18 cm) 5 Procedures: 18:41 Performed Removal of retained PoC from endocervix. With ring forceps and gentle pc retraction, the gestational sac was removed without complication, and the products sent for pathology . MDM: 15:30 Food Processing Plant Manager/Pulse Ox/q 15 min VS ordered. pc 15:30 IV Saline Lock ordered. pc 15:30 NS 0.9% 1000 ml IV at 100 mL/hr continuous ordered. pc 15:31 CBC with Diff Ordered. EDMS 15:31 MED Profile Ordered. EDMS 15:31 Hcg, Serum Quantitative Ordered. EDMS 15:32 NOTHING BY MOUTH+DIET ordered. EDMS 15:32 Type & Screen Ordered. EDMS 16:36 Financial registration complete. [email or web address] 16:46 CBC with Diff Reviewed. pc 16:46 MED Profile Reviewed. pc 16:46 Type & Screen Reviewed. pc 16:46 Hcg, Serum Quantitative Reviewed. pc 16:48 Ultrasound 1st Trimester Ordered. EDMS 16:59 Differential Diagnosis: s/p therapeutic AB with continued bleeding r/o incomplete pc AB/retained products. Plan: labs, IVF, US. 17:32 TRANSVAGINAL US Ordered. EDMS 17:33 DUPLEX SCAN LIMITED (DOPPLER) Ordered. EDMS 17:40 [facility] Payment Agreement was scanned into [employer] and attached to record. [email or web address] 18:12 Pathology Request For Service Ordered. EDMS 18:32 Orthostatic VS ordered. pc 18:37 Data reviewed: old medical records, vital signs, nurses notes, lab test results, all pc radiology studies and available results. Test interpretation: LAB - all labs as ordered have been reviewed, interpreted and considered in the overall management of the clinical presentation; Ultrasound - OB 1st trimester anterior fibroid, 6x2x2 clot/debris in endocervical canal, else nad. The patient has been re-examined and re-evaluated. The patient's symptoms have resolved after treatment. Physician consultation: Dr. Zane Uribe MD regarding patient's condition, and advises the medications/treatment as provided. and agrees with the treatment provided and advises the discharge plans as outlined. Disposition: The historical points, examination findings, and any diagnostic results supporting the provided diagnosis, were discussed with the patient or legal guardian. The need for outpatient follow up with the provider listed on their discharge instructions was discussed. They were encouraged to return to [facility], or the nearest ED, if symptoms worsen/persist, or for any other questions/concerns. Administered Medications: 15:53 Drug: NS 0.9% 1000 ml [sodium chloride 0.9 % intravenous solution] Route: IV; Rate: 100 jc4 mL/hr; Site: right antecubital; 19:09 Follow up: IV Status: Infusion discontinued; IV Intake: 300ml ja5 Signatures: Dispatcher [employer] EDMario Arce, MD MD pc Bethel, Tasneem, RN RN jc4 Kavitha Simeon, Reg Reg [email or web address] Thuy BlancasRN RN ja5 The chart was reviewed and I authenticate all verbal orders and agree with the evaluation and treatment provided.Corrections: (The following items were deleted from the chart) 18:41 18:37 : Pelvic Exam: external exam: is normal, speculum exam reveals scant bleeding, pc os that is open, pc Attachments: 17:40 [facility] Payment Agreement [email or web address] Chart Complete MTDD
== END 2016-11-24 19:10 | disposition home or self-care (01) ==
LOC: M ED 15:21
DX: O07.39 Failed attempted termination of pregnancy with other complications (principal)

== ENCOUNTER → 2017-05-04 | Outpatient (REF) | payer OTHER, MEDICAID ==
[~2017-05-04] MED LIST: ONDA4TAB6 PO; VENL37.598 PO; VENL75CA47 PO
== END ==
LOC: M LABDRAWC 17:01
PROVIDERS: ATTEND Nurse Practitioner Family
DX: Z32.01 Encounter for pregnancy test, result positive (principal)

== ENCOUNTER 2017-05-25 23:30 | Inpatient (IN) | payer MEDICAID, OTHER ==
[~2017-05-25] VITALS: Ht 172.7 cm; Wt 53.5 kg
[2017-05-26] MEDS ORDERED: ONDANSETRON 4 MG ORAL DISINTEGRATING TAB (S0181) PO ONE (01:30)
[2017-05-26] MEDS ORDERED: VENL75CA47 PO (05:21)
[2017-05-26] MEDS ORDERED: VENL37.598 PO (05:21)
[2017-05-26] MEDS ORDERED: ONDA4TAB6 PO (05:21)
[2017-05-26] MEDS ORDERED: MOM 30ML SUSPENSION UDC PO PRN (07:45)
[2017-05-26] MEDS ORDERED: MAALOX 30 ML SUSP *UDC PO PRN (07:45)
[2017-05-26] MEDS ORDERED: ACETAMINOPHEN TAB 650MG DOSE (2X325MG) PO PRN (07:45)
[2017-05-26] MEDS ORDERED: traZODone 50 MG TAB PO PRN (07:45)
[2017-05-26] MEDS: PRENATAL VITAMINS CHEWABLE TABLET PO SCH (09:00)
[2017-05-26] MEDS: VENLAFAXINE **XR** 37.5 MG CAPSULE PO SCH ×3 (09:00→19:17)
[2017-05-26] MEDS: CEFDINIR 300 MG CAP (OMNICEF) PO SCH ×3 (09:00→21:39)
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
[2017-05-26 10:38] LABS: BASO % 0.2 % (0.0-1.0); EOS % 0.7 % (0.0-3.0); LARGE UNSTAINED CELL # 0.2 K/mm3 (0.0-0.4); LARGE UNSTAINED CELL % 2.1 % (0.0-4.0); LYMPH # 1.7 K/mm3 (1.5-6.5); LYMPH % 21.7 % (24.0-44.0); MEAN CORPUSCULAR HEMOGLOBIN 30.1 pg (27.0-33.0); MEAN CORPUSCULAR HGB CONC 33.4 g/dl (32.0-36.5); MEAN CORPUSCULAR VOLUME 90.4 fl (80.0-96.0); MONO # 0.4 K/mm3 (0.0-0.8); MONO % 5.1 % (0.0-5.0); NEUTROPHILS # 5.5 K/mm3 (1.8-7.7); NEUTROPHILS % 70.2 % (36.0-66.0); PLATELET COUNT, AUTOMATED 307 k/mm3 (150-450); RED CELL DISTRIBUTION WIDTH 12.7 % (11.5-14.5); WHITE BLOOD COUNT 7.9 K/mm3 (4.0-10.0)
[2017-05-26 11:07] LABS: ALBUMIN 3.4 GM/DL (3.2-5.2); ALKALINE PHOSPHATASE 46 U/L (45-117); ALT/SGPT 10 U/L (12-78); ANION GAP 10 MEQ/L (8-16); AST/SGOT 8 U/L (15-37); BILIRUBIN,TOTAL 0.4 MG/DL (0.2-1.0); BLOOD UREA NITROGEN 3 MG/DL (7-18); CALCIUM LEVEL 8.9 MG/DL (8.5-10.1); CARBON DIOXIDE LEVEL 24 MEQ/L (21-32); CHLORIDE LEVEL 108 MEQ/L (98-107); CREATININE FOR GFR 0.51 MG/DL (0.55-1.02); GLOMERULAR FILTRATION RATE > 60.0 (>60); GLUCOSE, FASTING 89 MG/DL (70-105); HCG, SERUM QUANTITATIVE 108294 MIU/ML; POTASSIUM SERUM 3.9 MEQ/L (3.5-5.1); SODIUM LEVEL 142 MEQ/L (136-145); TOTAL PROTEIN 6.8 GM/DL (6.4-8.2)
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
[2017-05-26] MEDS ORDERED: hydrOXYzine 25 MG TAB PO PRN (11:30)
[2017-05-26] MEDS: ONDANSETRON 4 MG ORAL DISINTEGRATING TAB (S0181) PO PRN (19:17)
[2017-05-27] MEDS: ONDANSETRON 4 MG ORAL DISINTEGRATING TAB (S0181) PO PRN ×3 (02:38→20:49)
[2017-05-27 06:35] VITALS: BP 131/79
[2017-05-27 06:50] VITALS: BP 131/79
[2017-05-27] MEDS: VENLAFAXINE **XR** 37.5 MG CAPSULE PO SCH (09:00)
[2017-05-27] MEDS ORDERED: PROMETHAZINE INJ 25 MG/ML VIAL (J2550) IM ONE (09:00)
[2017-05-27] MEDS: CEFDINIR 300 MG CAP (OMNICEF) PO SCH ×2 (09:00→20:46)
[2017-05-27] MEDS: PRENATAL VITAMINS CHEWABLE TABLET PO SCH (09:00)
[2017-05-27 11:07] LABS: THYROXINE (T4) 16.1 UG/DL (4.5-12.0)
--- NOTE | 2017-05-27 15:59 | MHIPNPDOC ---
[facility] Progress Note Progress Note DATE OF SERVICE: 05/27/17 HISTORY: day 2 of admission for suicidal thoughts. VITAL SIGNS: See below. NEW TEST RESULTS: Low TSH, elevated free T4 and thyroxine. CURRENT MEDICATIONS: See below. MENTAL STATUS EXAMINATION: Patient is a 27-year old female, who is laying in bed covered with towels on her head and face and blankets over her body. She has junior ill today and took a very long 2 hour shower. Speech: Is spontaneous Language skills are good Thought processes including: goal directed Thought content: appropriate Abstract reasoning, and computation:good. Description of associations: good. Description of abnormal or psychotic thoughts: pt denied current suicidal thinking. has no intent or plan to harm self. is not exhibiting and psychotic symptoms. Judgment: good Insight: good. Orientation: well oriented in all spheres. Recent and remote memory: grossly intact. Attention span and concentration: poor due to sickness/poor sleep. Fund of knowledge: full. Mood: depressed. Affect: irritable, constricted. DIAGNOSES: Depressive disorder, unspecified Generalized anxiety disorder hyperemesis gravidum Pancreatitis ASSESSMENT:pt had written a letter that seemed to indicate request for discharge but when asked she denied it is her desire to leave. She states she was feeling alone and abandoned yesterday but she realizes she needs to see things from a different angle. By all indications pt gave signs she was interested in speaking with staff or making plans yesterday. She was observed in bed, covered up and asleep most times we stopped by her room. Today was the same but in addition she was in the shower for over 2 hours. We were able to talk today and she explained the change in environment from a medical model where everything is brought to you or done for you, to our model where you have to present to the med room for meds and ask for things. Once some of the confusion was cleared up she was cordial and pleasant and we could plan our next move. her goal is to have an appt for a medical sometime this month. Our CDP was present during commercial insurance underwriter's conversation with patient and will begin to get information so pt may make a choice about where to go. pt is concerned about her son who will be returning from his father's on Wednesday as she does not have a sitter for Wednesday. She feels her father may be able to make some arrangements for him. Pt is taking venlafaxine er for anxiety and depression. She is having lots of trouble with emesis due to . She says she feels the has caused the pancreatitis and adds, "I know that sounds crazy". but she was fine until 3 weeks ago. She was vomiting much of last night and ill again several times today. She did not sleep well with the trazodone and feels the dose was insufficient. MANAGEMENT PLAN: increase trazodone to 100 mg at hs, continue obs status and enc oob as tolerated. TIME SPENT: 15 minutes. Vital Signs Vital Signs Date Time Temp Pulse Resp B/P (MAP) Pulse Ox O2 Delivery O2 Flow Rate FiO2 05/27/17 06:50 97.6 69 16 131/79 (96) 05/26/17 04:58 98 05/25/17 23:42 Room Air Laboratory Data 24H Labs Laboratory Tests 2 05/27/17 10:15: Thyroid Stimulating Hormone (TSH) 0.112L, Free Thyroxine Index 5.6H, Thyroxine ( T4) 16.1H, Triiodothyronine (T3) Uptake 35 Current Medications Current Medications Acetaminophen (Tylenol Tab) 650 mg Q6HP PRN PO HEADACHE or DISCOMFORT; Start at 07:45; Stop 06/25/17 at 07:44 Al Hydrox/Mg Hydrox/Simethicone (Mylanta) 30 ml Q4HP PRN PO HEARTBURN/ INDIGESTION; Start 05/26/17 at 07:45; Stop 06/25/17 at 07:44 Cefdinir (Omnicef) 300 mg BID PO Last administered on 05/26/17t 21:39; Start at 09:00; Stop 06/02/17 at 08:59 Home Med (Med Rec Complete!) ASDIRECTED XX ; Start 05/26/17 at 05:30; Stop at 05:30; Status DC Hydroxyzine HCl (Atarax) 25 mg Q6HP PRN PO ANXIETY; Start 05/26/17 at 11:30; Stop 06/25/17 at 11:29 Magnesium Hydroxide (Milk Of Magnesia) 30 ml DAILYPRN PRN PO CONSTIPATION; Start 05/26/17 at 07:45; Stop 06/25/17 at 07:44 Ondansetron HCl (Zofran Odt) 4 mg Q6H PRN PO NAUSEA Last administered on 13:06; Start 05/26/17 at 12:30; Stop 06/25/17 at 12:29 Prenat Multivit/ [place]/Iron/Folic Ac ( Vitamins) 1 tab DAILY PO ; Start 05/26/17 at 09:00; Stop 06/25/17 at 08:59 Trazodone HCl (Desyrel) 50 mg QHSP PRN PO INSOMNIA; Start 05/26/17 at 07:45; Stop 06/25/17 at 07:44 Venlafaxine HCl (Effexor Xr) 112.5 mg QAM PO Last administered on 19:17; Start 05/26/17 at 09:00; Stop 06/25/17 at 08:59 Allergies Coded Allergies: No Known Drug Allergy (Verified Allergy, Unknown, 01/10/13) Paige Bowen May 27, 2017 15:59
[2017-05-27] MEDS ORDERED: traZODone 50 MG TAB PO PRN (16:00)
[2017-05-28] MEDS: ONDANSETRON 4 MG ORAL DISINTEGRATING TAB (S0181) PO PRN (06:21)
--- NOTE | 2017-05-28 11:48 | MHDSPDOC ---
[facility] Discharge Summary Discharge Summary DATE OF ADMISSION: May 26, 2017 at 04:47 DATE OF DISCHARGE: May 28, 2017 at 06:41 DISCHARGE DIAGNOSES:Depressive disorder, unspecified Generalized anxiety disorder hyperemesis gravidum Pancreatitis REASON FOR ADMISSION: Made a suicidal statement while at another hospital when sick with pancreatitis. Brought by ambulance. CONSULTANTS INVOLVED: Medicine, nursing, psychiatry TREATMENT AND PROGRESS ON THE UNIT : Pt was very withdrawn and kept to herself for the first 24 hours. When interviewed during that time she was dismissive of staff and mostly complained of physical problems. She was vomiting and having abdominal pain. She was also 8 weeks and had missed her scheduled due to being ill and at the hospital. Pt requested our assistance with finding another clinic to perform a medical , not a suction. When the CDP went to meet with her for this purpose PT wanted to attend group instead. She then was complaining that staff was ignoring her and abandoning her. She was often observed in bed with covers over her head and gave no indication she wanted to be interrupted. HOSPITAL COURSE: pt was very interested in having venlafaxine er available as she had suffered the withdrawal affects from this medication in the past and wanted to prevent that. She took approximately 2 doses since her admission. She tried to attend one group and when she arrived and told the tactical response group officer she did not want to talk or share, the leader recommended another groups that she might enjoy more which was an education group. Pt took this to mean she was being asked to leave and was upset by this. She later wrote a letter complaining of negative staff behaviors but denied she was asking for discharge. Pt was assured that her needs would be met and we wanted to help her in every way we could. Pt was accepting of our response and was reassured that we would do all we could to fulfill her needs. Pt spent hours in the shower on . Warm water helps her to relax and she states it make her feel better. DISCHARGE ASSESSMENT: License Issuer received call from [employer]NNi that pt had found a planed parent greco location that would perform her d & C. She called after hours to request discharge for the [facility] on this day at 6:30 am. Pt planned to have her family transport her to [place] for the medical procedure she was seeking. Pt would not be happy if flex o writer operator would not permit her to leave. Though it was sudden it was seen to be paramount to the pt and she would not feel better until this was dealt with. pt was authorized to leave. She was voluntary status and her family picked her up today to take her down state. Staff informed flex o writer operator that pt may return following the procedure for readmission. If she meets criteria for admission she may return or she may follow outpatient recommendations for medication mgt and therapy. MENTAL STATUS EXAMINATION ON DISCHARGE: Patient is a 27-year old female, who is dark hair, olive complexion, petite in stature. Speech is clear Language skills are good Thought processes including: logical and linear Thought content: appropriate. Abstract reasoning, and computation: good. Description of associations: good. Description of abnormal or psychotic thoughts: no psychosis reported or observed. pt denies aud/visual disturbances. Pt denies feeling suicidal. Pt denies previous admissions for suicidal ideation or depression. Judgment: fair. Insight: fair. Orientation to well oriented in all spheres. Recent and remote memory: grossly intact Attention span and concentration: varies due to physical illness. Fund of knowledge:Full Mood: dysphoric Affect: congruent MEDICATIONS ON DISCHARGE: - venlafaxine 112.5 for anxiety and depression. PLAN/FOLLOWUP ARRANGEMENTS: pt left prior to completion of nutrition consult or discussion of thyroid needs. pt was prescribed venlafaxine by her PCP. Pt was informed to return to PCP when evaluated by medical personnel upon discharge. her urine culture results were inconclusive. The amount of time spent in the coordination of care for this patient was approximately 30 minutes. Vital Signs/I&Os Vital Signs Date Time Temp Pulse Resp B/P (MAP) Pulse Ox O2 Delivery O2 Flow Rate FiO2 05/27/17 06:50 97.6 69 16 131/79 (96) 05/26/17 04:58 98 05/25/17 23:42 Room Air Laboratory Data Microbiology Microbiology 05/26/17 Urine Culture - Final, Complete Medications Scheduled Venlafaxine HCl (Venlafaxine HCl ER) 37.5 Mg Capcr, 37.5 MG PO DAILY, (Reported) Venlafaxine HCl (Venlafaxine HCl ER) 75 Mg Capcr, 75 MG PO DAILY, (Reported) Allergies Coded Allergies: No Known Drug Allergy (Verified Allergy, Unknown, 01/10/13) Paige Bowen May 28, 2017 11:48
== END 2017-05-28 06:41 | disposition home or self-care (01) | DRG 566 ==
LOC: M ED 23:30 → M ED INP 05-26 04:47 → M PSY 05-26 05:30
PROVIDERS: ADMIT Psychiatry & Neurology Psychiatry; ATTEND Psychiatry & Neurology Psychiatry
DX: O99.341 Other mental disorders complicating pregnancy, first trimester (principal); F32.9 Major depressive disorder, single episode, unspecified; Z36 Encounter for antenatal screening of mother; K85.90 Acute pancreatitis without necrosis or infection, unspecified; O21.0 Mild hyperemesis gravidarum; O26.611 Liver and biliary tract disorders in pregnancy, first trimester; E87.6 Hypokalemia; E83.42 Hypomagnesemia; N39.0 Urinary tract infection, site not specified; O99.281 Endocrine, nutritional and metabolic diseases complicating pregnancy, first trimester; O23.41 Unspecified infection of urinary tract in pregnancy, first trimester; Z3A.08 8 weeks gestation of pregnancy